=== PATIENT | male | born 1970 | race Caucasian/White ===

== ENCOUNTER 2018-06-16 21:17 | Inpatient (IN) | payer OTHER ==
[2018-06-16] MEDS ORDERED: NACL 0.9% 3 ML SYG IV (23:00)
[2018-06-16] MEDS ORDERED: morphine 2 MG INJ IV (23:00)
[2018-06-16] MEDS ORDERED: VANCOMYCIN IV PER PHARMACY XX (23:00)
[2018-06-16] MEDS ORDERED: DOCUSATE SODIUM 100 MG CAP PO (23:00)
[2018-06-16] MEDS ORDERED: BISACODYL (EC) 5 MG TAB PO (23:00)
[2018-06-16] MEDS ORDERED: ONDANSETRON 4 MG INJ IV (23:00)
[2018-06-16 23:26] LABS: ADD MAN DIFF? NO
[2018-06-16 23:27] LABS: WHITE BLOOD COUNT 7.3 10^3/ul (4.8-10.8)
[2018-06-16 23:27] LABS: BASOPHILS % 0.4 % (0.0-2.0); EOSINOPHILS # 0.2 10^3/ul (0.0-0.5); EOSINOPHILS % 2.2 % (0.0-7.0); HEMOGLOBIN 13.9 g/dl (14.0-18.0); LYMPHOCYTES % 13.1 % (15.0-51.0); MEAN CORPUSCULAR HEMOGLOBIN 29.4 pg (29.0-33.0); MEAN CORPUSCULAR HGB CONC 33.1 g/dl (32.0-37.0); MEAN PLATELET VOLUME 10.4 fl (7.4-10.4); MONOCYTE # 1.1 10^3/ul (0.3-0.9); MONOCYTES % 14.3 % (0.0-11.0); NEUTROPHIL # 5.1 10^3/ul (1.6-7.5); NEUTROPHILS % 69.3 % (39.0-77.0); PLATELET COUNT 175 10^3/UL (140-415); RED BLOOD COUNT 4.72 10^6/ul (4.70-6.10); RED CELL DISTRIBUTION WIDTH 12.4 % (11.5-14.5)
[2018-06-16 23:44] LABS: HEMOGLOBIN A1C 9.3 % (0-5.9)
[2018-06-16 23:46] LABS: ALANINE AMINOTRANSFERASE 22 IU/L (13-69); ALBUMIN 3.9 g/dl (3.3-4.9); ALBUMIN/GLOBULIN RATIO 1.39; ALKALINE PHOSPHATASE 85 IU/L (42-121); ANION GAP 15 (8-16); ASPARTATE AMINO TRANSFERASE 11 IU/L (15-46); BILIRUBIN,INDIRECT 1.1 mg/dl (0-1.1); BILIRUBIN,TOTAL 1.1 mg/dl (0.2-1.3); BLOOD UREA NITROGEN 11 mg/dl (7-20); CALCIUM 8.9 mg/dl (8.4-10.2); CARBON DIOXIDE 20 mmol/L (21-31); CHLORIDE 106 mmol/L (97-110); CREATININE 0.71 mg/dl (0.61-1.24); GLUCOSE 156 mg/dl (70-220); POTASSIUM 4.3 mmol/L (3.5-5.1); SODIUM 137 mmol/L (135-144); TOTAL PROTEIN 6.7 g/dl (6.1-8.1)
[2018-06-17] MEDS ORDERED: GLUCOSE GEL 15 GRAM TUBE BUCCAL (01:30)
[2018-06-17] MEDS ORDERED: GLUCAGON 1 MG INJ IM (01:30)
[2018-06-17] MEDS ORDERED: DEXTROSE 50% 50 ML SYRINGE IV ×2 (01:30)
[2018-06-17] MEDS ORDERED: GLUCOSE GEL 15 GRAM TUBE PO ×2 (01:30)
[2018-06-17] MEDS: ACCU-CHEK XX (01:32)
[2018-06-17 05:38] LABS: ADD MAN DIFF? NO
[2018-06-17 05:45] LABS: BASOPHIL # 0.1 10^3/ul (0.0-0.1); BASOPHILS % 0.7 % (0.0-2.0); EOSINOPHILS # 0.2 10^3/ul (0.0-0.5); EOSINOPHILS % 2.6 % (0.0-7.0); HEMATOCRIT 41.7 % (42.0-52.0); HEMOGLOBIN 13.9 g/dl (14.0-18.0); LYMPHOCYTES # 1.2 10^3/ul (0.8-2.9); LYMPHOCYTES % 17.7 % (15.0-51.0); MEAN CORPUSCULAR HEMOGLOBIN 29.7 pg (29.0-33.0); MEAN CORPUSCULAR HGB CONC 33.3 g/dl (32.0-37.0); MEAN CORPUSCULAR VOLUME 89.1 fl (82.0-101.0); MEAN PLATELET VOLUME 10.1 fl (7.4-10.4); MONOCYTES % 14.2 % (0.0-11.0); NEUTROPHIL # 4.5 10^3/ul (1.6-7.5); NEUTROPHILS % 64.2 % (39.0-77.0); PLATELET COUNT 171 10^3/UL (140-415); RED BLOOD COUNT 4.68 10^6/ul (4.70-6.10); RED CELL DISTRIBUTION WIDTH 12.7 % (11.5-14.5)
[2018-06-17 06:07] LABS: ALANINE AMINOTRANSFERASE 18 IU/L (13-69); ALBUMIN 3.7 g/dl (3.3-4.9); ALBUMIN/GLOBULIN RATIO 1.32; ALKALINE PHOSPHATASE 76 IU/L (42-121); ANION GAP 12 (8-16); ASPARTATE AMINO TRANSFERASE 10 IU/L (15-46); BILIRUBIN,INDIRECT 0.9 mg/dl (0-1.1); BILIRUBIN,TOTAL 0.9 mg/dl (0.2-1.3); BLOOD UREA NITROGEN 10 mg/dl (7-20); CALCIUM 8.9 mg/dl (8.4-10.2); CARBON DIOXIDE 24 mmol/L (21-31); CHLORIDE 107 mmol/L (97-110); CHOL/HDL RATIO 2.4 RATIO; CHOLESTEROL 121 mg/dl (100-200); CREATININE 0.74 mg/dl (0.61-1.24); GLUCOSE 143 mg/dl (70-220); HDL CHOLESTEROL 50 mg/dl (28-71); LDL CHOLESTEROL,CALCULATED 54 mg/dl; POTASSIUM 4.2 mmol/L (3.5-5.1); SODIUM 139 mmol/L (135-144); TOTAL PROTEIN 6.5 g/dl (6.1-8.1); TRIGLYCERIDES 85 mg/dl (0-149)
[2018-06-17 06:49] LABS: VANCOMYCIN,RANDOM < 5.0 ug/ml
[2018-06-17 07:23] LABS: MAGNESIUM 2.1 mg/dl (1.7-2.5)
[2018-06-17] MEDS: INSULIN ASPART [NOVOLOG] 3 ML PEN SC ×5 (07:39→20:25)
[2018-06-17] MEDS: VANCOMYCIN 1 GM 250 ML IVPB ×2 (08:37→20:21)
[2018-06-17] MEDS: PIPER-TAZO 3.375 GM IV (PMX) 100 ML IVPB ×3 (11:30→23:36)
[2018-06-17 14:29] LABS: HEMOGLOBIN A1C 9.3 % (0-5.9)
[2018-06-17] MEDS: ACETAMINOPHEN 325 MG TAB PO (18:23)
[2018-06-17] MEDS: INSULIN GLARGINE [LANTus] (100 UNITS/ML) SYG SC (20:25)
[2018-06-17] MEDS: SILVER SULFADIAZINE 1% 25 GM CR TOP (21:21)
[2018-06-18] MEDS: ACCU-CHEK XX (01:29)
[2018-06-18] MEDS: PIPER-TAZO 3.375 GM IV (PMX) 100 ML IVPB ×4 (05:21→23:49)
[2018-06-18 06:41] LABS: ADD MAN DIFF? NO
[2018-06-18 06:44] LABS: BASOPHIL # 0.1 10^3/ul (0.0-0.1); BASOPHILS % 1.2 % (0.0-2.0); EOSINOPHILS # 0.2 10^3/ul (0.0-0.5); HEMATOCRIT 42.4 % (42.0-52.0); HEMOGLOBIN 14.4 g/dl (14.0-18.0); LYMPHOCYTES # 1.1 10^3/ul (0.8-2.9); LYMPHOCYTES % 25.2 % (15.0-51.0); MEAN CORPUSCULAR HEMOGLOBIN 30.2 pg (29.0-33.0); MEAN CORPUSCULAR VOLUME 88.9 fl (82.0-101.0); MEAN PLATELET VOLUME 9.9 fl (7.4-10.4); MONOCYTE # 0.7 10^3/ul (0.3-0.9); MONOCYTES % 15.7 % (0.0-11.0); NEUTROPHIL # 2.3 10^3/ul (1.6-7.5); NEUTROPHILS % 53.4 % (39.0-77.0); PLATELET COUNT 198 10^3/UL (140-415); RED BLOOD COUNT 4.77 10^6/ul (4.70-6.10); RED CELL DISTRIBUTION WIDTH 12.1 % (11.5-14.5)
[2018-06-18 06:44] LABS: WHITE BLOOD COUNT 4.2 10^3/ul (4.8-10.8)
[2018-06-18 07:05] LABS: INR 0.86; PROTIME 11.8 Sec (11.9-14.9); PT RATIO 0.9
[2018-06-18 07:10] LABS: ALANINE AMINOTRANSFERASE 17 IU/L (13-69); ALBUMIN 3.6 g/dl (3.3-4.9); ALBUMIN/GLOBULIN RATIO 1.24; ALKALINE PHOSPHATASE 67 IU/L (42-121); ANION GAP 14 (8-16); ASPARTATE AMINO TRANSFERASE < 8 IU/L (15-46); BILIRUBIN,INDIRECT 0.8 mg/dl (0-1.1); BILIRUBIN,TOTAL 0.8 mg/dl (0.2-1.3); BLOOD UREA NITROGEN 11 mg/dl (7-20); CALCIUM 9.1 mg/dl (8.4-10.2); CARBON DIOXIDE 24 mmol/L (21-31); CHLORIDE 105 mmol/L (97-110); CREATININE 0.67 mg/dl (0.61-1.24); GLUCOSE 132 mg/dl (70-220); MAGNESIUM 1.8 mg/dl (1.7-2.5); PHOSPHORUS 3.7 mg/dl (2.5-4.9); POTASSIUM 3.8 mmol/L (3.5-5.1); SODIUM 139 mmol/L (135-144); TOTAL PROTEIN 6.5 g/dl (6.1-8.1)
[2018-06-18 07:22] LABS: MAGNESIUM 1.8 mg/dl (1.7-2.5)
[2018-06-18] MEDS: VANCOMYCIN 1 GM 250 ML IVPB ×2 (07:40→20:50)
[2018-06-18] MEDS: SILVER SULFADIAZINE 1% 25 GM CR TOP ×2 (07:46→20:54)
[2018-06-18] MEDS: INSULIN ASPART [NOVOLOG] 3 ML PEN SC ×7 (08:00→20:54)
[2018-06-18] MEDS: NICOTINE (14 MG/24 HR) PATCH TRANSDERM (08:13)
[2018-06-18] MEDS ORDERED: HYDROCODONE/APAP (10/325) TAB PO (11:00)
[2018-06-18] MEDS: LINAGLIPTIN 5 MG TABLET PO (12:00)
[2018-06-18 20:03] LABS: VANCOMYCIN,TROUGH 6.5 ug/ml (10.0-20.0)
[2018-06-18] MEDS: INSULIN GLARGINE [LANTus] (100 UNITS/ML) SYG SC (20:52)
[2018-06-18] MEDS: LACTOBACILLUS RHAMNOSUS CAP PO (20:54)
[2018-06-18] MEDS ORDERED: morphine LIQ (10 MG/5 ML) CUP PO (22:00)
[2018-06-19] MEDS: ACCU-CHEK XX (02:00)
[2018-06-19 05:26] LABS: ADD MAN DIFF? NO
[2018-06-19 05:27] LABS: WHITE BLOOD COUNT 3.7 10^3/ul (4.8-10.8)
[2018-06-19 05:27] LABS: BASOPHIL # 0.1 10^3/ul (0.0-0.1); BASOPHILS % 1.6 % (0.0-2.0); EOSINOPHILS # 0.1 10^3/ul (0.0-0.5); EOSINOPHILS % 3.8 % (0.0-7.0); HEMATOCRIT 43.4 % (42.0-52.0); HEMOGLOBIN 14.8 g/dl (14.0-18.0); LYMPHOCYTES # 1.4 10^3/ul (0.8-2.9); LYMPHOCYTES % 37.3 % (15.0-51.0); MEAN CORPUSCULAR HEMOGLOBIN 30.1 pg (29.0-33.0); MEAN CORPUSCULAR HGB CONC 34.1 g/dl (32.0-37.0); MEAN CORPUSCULAR VOLUME 88.2 fl (82.0-101.0); MEAN PLATELET VOLUME 9.6 fl (7.4-10.4); MONOCYTE # 0.6 10^3/ul (0.3-0.9); MONOCYTES % 16.8 % (0.0-11.0); NEUTROPHIL # 1.5 10^3/ul (1.6-7.5); NEUTROPHILS % 39.4 % (39.0-77.0); PLATELET COUNT 196 10^3/UL (140-415); RED BLOOD COUNT 4.92 10^6/ul (4.70-6.10)
[2018-06-19] MEDS: PIPER-TAZO 3.375 GM IV (PMX) 100 ML IVPB ×3 (05:27→16:58)
[2018-06-19 05:46] LABS: MAGNESIUM 1.9 mg/dl (1.7-2.5)
[2018-06-19 05:52] LABS: ANION GAP 11 (8-16); BLOOD UREA NITROGEN 11 mg/dl (7-20); CALCIUM 9.1 mg/dl (8.4-10.2); CARBON DIOXIDE 28 mmol/L (21-31); CHLORIDE 105 mmol/L (97-110); CREATININE 0.64 mg/dl (0.61-1.24); GLUCOSE 246 mg/dl (70-220); POTASSIUM 4.2 mmol/L (3.5-5.1); SODIUM 140 mmol/L (135-144)
[2018-06-19] MEDS: VANCOMYCIN 1 GM 250 ML IVPB ×3 (06:06→20:42)
[2018-06-19] MEDS: SILVER SULFADIAZINE 1% 25 GM CR TOP ×3 (07:55→20:30)
[2018-06-19] MEDS: INSULIN ASPART [NOVOLOG] 3 ML PEN SC ×8 (08:04→20:51)
[2018-06-19] MEDS: LACTOBACILLUS RHAMNOSUS CAP PO ×2 (08:06→20:42)
[2018-06-19] MEDS: NICOTINE (14 MG/24 HR) PATCH TRANSDERM (08:06)
[2018-06-19] MEDS: LINAGLIPTIN 5 MG TABLET PO (08:06)
[2018-06-19] MEDS: CLOTRIMAZOLE 1% 30 GM CR TOP (15:38)
[2018-06-19 18:34] LABS: GLUCOSE 394 mg/dl (70-220)
[2018-06-19] MEDS: SODIUM HYPOCHLORITE 0.125% 473 ML BTL IRR (20:30)
[2018-06-19] MEDS: INSULIN GLARGINE [LANTus] (100 UNITS/ML) SYG SC (20:50)
[2018-06-19] MEDS: SOD CHLORIDE 0.9% 500 ML IV (20:52)
[2018-06-19] MEDS ORDERED: INSULIN ASPART [NOVOLOG] 3 ML PEN SC (21:00)
[2018-06-20] MEDS: PIPER-TAZO 3.375 GM IV (PMX) 100 ML IVPB ×5 (01:01→23:57)
[2018-06-20] MEDS: ACCU-CHEK XX (02:00)
[2018-06-20 04:14] LABS: ADD MAN DIFF? NO
[2018-06-20 04:16] LABS: BASOPHIL # 0.1 10^3/ul (0.0-0.1); BASOPHILS % 1.8 % (0.0-2.0); EOSINOPHILS # 0.1 10^3/ul (0.0-0.5); EOSINOPHILS % 2.8 % (0.0-7.0); HEMATOCRIT 42.4 % (42.0-52.0); HEMOGLOBIN 14.8 g/dl (14.0-18.0); LYMPHOCYTES # 1.4 10^3/ul (0.8-2.9); LYMPHOCYTES % 36.4 % (15.0-51.0); MEAN CORPUSCULAR HEMOGLOBIN 30.5 pg (29.0-33.0); MEAN CORPUSCULAR HGB CONC 34.9 g/dl (32.0-37.0); MEAN CORPUSCULAR VOLUME 87.4 fl (82.0-101.0); MEAN PLATELET VOLUME 9.6 fl (7.4-10.4); MONOCYTE # 0.6 10^3/ul (0.3-0.9); MONOCYTES % 15.5 % (0.0-11.0); NEUTROPHIL # 1.7 10^3/ul (1.6-7.5); NEUTROPHILS % 42.2 % (39.0-77.0); PLATELET COUNT 220 10^3/UL (140-415); RED BLOOD COUNT 4.85 10^6/ul (4.70-6.10); RED CELL DISTRIBUTION WIDTH 11.9 % (11.5-14.5)
[2018-06-20 04:16] LABS: WHITE BLOOD COUNT 3.9 10^3/ul (4.8-10.8)
[2018-06-20 04:37] LABS: MAGNESIUM 1.9 mg/dl (1.7-2.5)
[2018-06-20 04:38] LABS: ALANINE AMINOTRANSFERASE 17 IU/L (13-69); ALBUMIN 3.7 g/dl (3.3-4.9); ALBUMIN/GLOBULIN RATIO 1.23; ALKALINE PHOSPHATASE 74 IU/L (42-121); ANION GAP 11 (8-16); ASPARTATE AMINO TRANSFERASE 9 IU/L (15-46); BILIRUBIN,INDIRECT 0.5 mg/dl (0-1.1); BILIRUBIN,TOTAL 0.5 mg/dl (0.2-1.3); BLOOD UREA NITROGEN 14 mg/dl (7-20); CALCIUM 9.2 mg/dl (8.4-10.2); CARBON DIOXIDE 26 mmol/L (21-31); CHLORIDE 106 mmol/L (97-110); CREATININE 0.76 mg/dl (0.61-1.24); GLUCOSE 202 mg/dl (70-220); POTASSIUM 4.3 mmol/L (3.5-5.1); SODIUM 139 mmol/L (135-144); TOTAL PROTEIN 6.7 g/dl (6.1-8.1)
[2018-06-20 05:04] LABS: VANCOMYCIN,TROUGH 12.5 ug/ml (10.0-20.0)
[2018-06-20] MEDS: VANCOMYCIN 1 GM 250 ML IVPB ×3 (06:40→20:31)
[2018-06-20] MEDS: INSULIN ASPART [NOVOLOG] 3 ML PEN SC ×7 (07:53→20:41)
[2018-06-20] MEDS: LACTOBACILLUS RHAMNOSUS CAP PO ×2 (08:29→20:32)
[2018-06-20] MEDS: LINAGLIPTIN 5 MG TABLET PO (08:29)
[2018-06-20] MEDS: SODIUM HYPOCHLORITE 0.125% 473 ML BTL IRR (08:29)
[2018-06-20] MEDS: CLOTRIMAZOLE 1% 30 GM CR TOP (08:30)
[2018-06-20] MEDS: SILVER SULFADIAZINE 1% 25 GM CR TOP ×3 (08:30→19:39)
[2018-06-20] MEDS: NICOTINE (14 MG/24 HR) PATCH TRANSDERM (08:31)
[2018-06-20] MEDS ORDERED: CLOTRIMAZOLE 1% 30 ML TOPICAL SOLN TOP (09:00)
[2018-06-20] MEDS ORDERED: IBUPROFEN 800 MG TAB PO (13:30)
[2018-06-20] MEDS: KETOROLAC 30 MG INJ IV (20:30)
[2018-06-20] MEDS: TRIMETHOPRIM/SULFAMETHOX (DS) TAB PO (20:31)
[2018-06-20] MEDS: INSULIN GLARGINE [LANTus] (100 UNITS/ML) SYG SC (20:42)
[2018-06-21] MEDS: ACCU-CHEK XX (02:00)
[2018-06-21] MEDS: ZOLPIDEM 5 MG TAB PO (02:51)
[2018-06-21] MEDS ORDERED: LORAZEPAM 1 MG TAB PO (03:00)
[2018-06-21] MEDS: PIPER-TAZO 3.375 GM IV (PMX) 100 ML IVPB ×2 (05:57→12:24)
[2018-06-21 06:27] LABS: MAGNESIUM 2.1 mg/dl (1.7-2.5)
[2018-06-21] MEDS: VANCOMYCIN 1 GM 250 ML IVPB ×2 (06:55→13:34)
[2018-06-21] MEDS: INSULIN ASPART [NOVOLOG] 3 ML PEN SC ×4 (08:15→12:30)
[2018-06-21] MEDS: CLOTRIMAZOLE 1% 30 GM CR TOP (08:30)
[2018-06-21] MEDS: TRIMETHOPRIM/SULFAMETHOX (DS) TAB PO (08:31)
[2018-06-21] MEDS: NICOTINE (14 MG/24 HR) PATCH TRANSDERM (08:31)
[2018-06-21] MEDS: SILVER SULFADIAZINE 1% 25 GM CR TOP ×2 (08:31)
[2018-06-21] MEDS: LACTOBACILLUS RHAMNOSUS CAP PO (08:31)
[2018-06-21] MEDS: LINAGLIPTIN 5 MG TABLET PO (08:31)
[2018-06-21] MEDS: SODIUM HYPOCHLORITE 1/40% 1L IRRIG IRR (10:46)
[2018-06-21] MEDS ORDERED: INSULIN ASPART [NOVOLOG] 3 ML PEN SC (18:00)
[2018-06-21] MEDS ORDERED: INSULIN GLARGINE [LANTus] (100 UNITS/ML) SYG SC (20:00)
== END 2018-06-21 17:50 | disposition home health service (06) | DRG 571 ==
LOC: MS2 21:17
PROC: 0JBQ0ZZ Excision of Right Foot Subcutaneous Tissue and Fascia, Open Approach (ICD-10-PCS; principal; 2018-06-17)
PROC: 0JBQ0ZZ Excision of Right Foot Subcutaneous Tissue and Fascia, Open Approach (ICD-10-PCS; 2018-06-17)
PROC: 0JBQ0ZZ Excision of Right Foot Subcutaneous Tissue and Fascia, Open Approach (ICD-10-PCS; 2018-06-20)
PROC: 0JBQ0ZZ Excision of Right Foot Subcutaneous Tissue and Fascia, Open Approach (ICD-10-PCS; 2018-06-20)
DX: L03.115 Cellulitis of right lower limb (principal); L02.611 Cutaneous abscess of right foot; E11.621 Type 2 diabetes mellitus with foot ulcer; E11.65 Type 2 diabetes mellitus with hyperglycemia; E11.40 Type 2 diabetes mellitus with diabetic neuropathy, unspecified; E11.42 Type 2 diabetes mellitus with diabetic polyneuropathy; L84 Corns and callosities; B35.1 Tinea unguium; E11.319 Type 2 diabetes mellitus with unspecified diabetic retinopathy without macular edema
CPT/HCPCS: 71045; 80048; 80053; 80061; 80202; 82306; 82947; 82962; 83036; 83735; 84100; 84443; 85025; 85610; 87070; 93005